=== PATIENT | female | born 1985 | race American Indian/Alaskan Native ===

== ENCOUNTER 2016-09-20 08:20 | Emergency (ER) | payer MEDICAID ==
[2016-09-20 10:30] LABS: Basophils % (Auto) 0.6 % (0.0-1.8); Eosinophils % (Auto) 1.5 % (0.0-4.3); Hematocrit 36.6 % (30.3-42.9); Hemoglobin 11.8 gm/dl (10.1-14.3); Mean Corpuscular HGB Conc 32 % (30-34); Mean Corpuscular Hemoglobin 27 pg (28-32); Mean Corpuscular Volume 83 fl (79-97); Platelet Count 232 K/mm3 (140-440); Red Blood Count 4.43 M/mm3 (3.65-5.03); Red Cell Distribution Width 13.6 % (13.2-15.2)
[2016-09-20 10:45] LABS: Alanine Aminotransferase 21 units/L (7-56); Albumin 3.4 g/dL (3.9-5); Albumin/Globulin Ratio 1.3 %; Alkaline Phosphatase 46 units/L (35-129); Anion Gap 15 mmol/L; BUN/Creatinine Ratio 17.14; Bilirubin,Total 0.2 mg/dL (0.1-1.2); Blood Urea Nitrogen 12 mg/dL (7-17); Calcium 8.3 mg/dL (8.4-10.2); Carbon Dioxide 21 mmol/L (22-30); Chloride 104.4 mmol/L (98-107); Glucose 90 mg/dL (65-100); Sodium 136 mmol/L (137-145); Total Protein 6.1 g/dL (6.3-8.2)
[2016-09-20 11:58] LABS: Bilirubin,Urine NEG (Negative); Blood,Urine LG (Negative); Ketones,Urine NEG (Negative); Leukocyte Esterase,Urine SM (Negative); Mucus,Urine FEW /HPF; Nitrite,Urine NEG (Negative); Protein,Urine <15 mg/dL mg/dL (Negative); Urobilinogen,Urine < 2.0 mg/dL (<2.0)
--- NOTE | 2016-09-20 12:11 | Emergency Department Report ---
HPI - General Chief Complaint: Extremity Problem,Nontraumatic Time Seen by Provider: 09/20/16 11:12 - HPI HPI: She is a 31-year-old female who presents to ED complaining of bilateral foot swelling and pain 2 weeks. Patient states over the past 2 weeks she has some progressive swelling of her foot. 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 Patient states pain is throbbing and constant in nature. Patient states pain is worse with walking. Patient denies any injury or trauma to foot. She denies history of hypertension or diabetes or any other medical conditions. Patient denies fever/chills/nausea/vomiting/abdominal pain/shortness of breath/ difficulty breathing/calf pain ED Past Medical Hx - Past Medical History Previous Medical History?: No - Surgical History Past Surgical History?: Yes Additional Surgical History: C-Sections - Social History Smoking Status: Current Every Day Smoker Substance Use Type: Alcohol - Medications Home Medications: Home Medications Medication Instructions Recorded Confirmed Last Taken Type Compression Socks, Medium [Futuro 1 each MC DAILY #1 pack 09/20/16 Unknown Rx Restoring] Cyclobenzaprine [Flexeril 10 MG 10 mg PO QHS #24 tablet 09/20/16 Unknown Rx TAB] Ibuprofen [Motrin] 800 mg PO Q8HR PRN #30 tablet 09/20/16 Unknown Rx ED Review of Systems ROS: Stated complaint: SWOLLEN/HURT FEET BILATERAL Other details as noted in HPI Constitutional: denies: chills, fever Eyes: denies: eye pain, eye discharge, vision change ENT: denies: ear pain, throat pain Respiratory: denies: cough, shortness of breath, wheezing Cardiovascular: denies: chest pain, palpitations Endocrine: no symptoms reported Gastrointestinal: denies: abdominal pain, nausea, diarrhea Genitourinary: denies: urgency, dysuria, discharge Musculoskeletal: denies: back pain, joint swelling, arthralgia Skin: denies: rash, lesions Neurological: denies: headache, weakness, paresthesias Psychiatric: denies: anxiety, depression Hematological/Lymphatic: denies: easy bleeding, easy bruising Physical Exam - Physical Exam Vital Signs: Vital Signs 09/20/16 08:46 Temperature 98.4 F Pulse Rate 79 Respiratory 18 Rate Blood Pressure 124/80 O2 Sat by Pulse 100 Oximetry Physical Exam: GENERAL: Alert and oriented x3, no apparent distress, mild limp Gait, atraumatic. HEAD: Head is normocephalic and a-traumatic. EYES: Extra ocular muscles are intact. Pupils are equal, round, and reactive to light and accommodation. EARS: symetrical, atraumatic, non tender, ear canal clear and moderate cerumen, tympanic membrance non inflamed. gross auditory nml bilaterally. NOSE: Nose symetrical, Nontender,Nares appeared normal. MOUTH:Mouth is well hydrated and without lesions. Tonsils nonerythematous or swollen, Uvula midline, Tongue not elevated. Mucous membranes are moist. Posterior pharynx clear, no exudate or lesions. Patent airways. NECK: Supple. Non edematous, No carotid bruits. No lymphadenopathy or thyromegaly. LUNGS: Symetrical with respiration, No wheezing, no rales or crackles, CTAB. HEART: S1, S2 present, regular rate and rhythm without murmur, no rubs, no gallops. ABDOMEN: No organomegaly was noted,Positive bowel sounds, soft, and non- distended. . Nontender to palpation on all Quadrants, NO CVA tenderness. EXTREMITIES/MUSCULOSKELETAL: No cyanosis, clubbing, rash, lesions or edema. Full ROM bilaterally. UE/LE Pulses 2+ bilaterally. LE and UE 5+ strength bilaterally. Bilateral foot and ankle 1+ edema. Tenderness to palpation of bilateral foot. Negative straight leg raise bilaterally. Negative Homans sign. No calf tenderness bilaterally NEUROLOGIC: No focal Deficit, Cranial nerves II through XII are grossly intact. No loss of sensation, PSYCHIATRIC: Mood is congruent with affect, denies suicidal or homicidal ideations. SKIN: Warm and dry, No lesions, No ulceration or induration present. ED Course Vital Signs 09/20/16 08:46 Temperature 98.4 F Pulse Rate 79 Respiratory 18 Rate Blood Pressure 124/80 O2 Sat by Pulse 100 Oximetry ED Medical Decision Making - Lab Data Result diagrams: 09/20/16 10:08 09/20/16 10:08 - Radiology Data Radiology results: report reviewed ZACHARY JEONG Female : 1985 MedRec# [id number] 09/20/16 11:17 - [facility]: [id number] : 1985 Patient Age: 31 VASCULAR LAB.PRELIMINARY REPORT.BLE VENOUS DUPLEX DONE. NO EVIDENCE OF DVT/SVT IN VESSELS VISUALIZED.TECHNICALLY LIMITED DUE TO HABITUS. Initialized on 09/20/16 11:17 - END OF NOTE - Medical Decision Making 31-year-old female presents with bilateral foot edema. ED course: CBC within normal limits, CMP within normal limits, d-dimer negative , total CK mildly elevated. Urinalysis shows normal. Discussed the patient's rest fate fish and mayonnaise every hour. Discussed elevate the legs for about 10 minutes daily Discussed the follow up with primary care physician. Discussed compression socks daily for about 20-30 minutes. Discussed findings with patient. Critical care attestation.: If time is entered above; I have spent that time in minutes in the direct care of this critically ill patient, excluding procedure time. ED Disposition Clinical Impression: Edema of both feet Disposition: DISCHARGED TO HOME OR SELFCARE Is pt being admited?: No Does the pt Need Aspirin: No Condition: Stable Instructions: Leg Edema (ED) Additional Instructions: Follow-up with primary care physician. Elevate your feet throughout the day. Wear stockings as discussed. If new symptoms arise which aren't to ED. Prescriptions: Cyclobenzaprine [Flexeril 10 MG TAB] 10 mg PO QHS #24 tablet Compression Socks, Medium [Futuro Restoring] 1 each MC DAILY #1 pack Ibuprofen [Motrin] 800 mg PO Q8HR PRN #30 tablet PRN Reason: Pain Referrals: PRIMARY SAIRA, [Primary Care Provider] - 3-5 Days WEN BERRY MD [Referring] - 3-5 Days MELISSA CHAPMAN MD [Referring] - 3-5 Days SHAE ONEIL MD [Referring] - 3-5 Days Forms: Work/School Release Form(ED) Time of Disposition: 13:07
[2016-09-20] MEDS ORDERED: TORADOL IM ONE (12:16)
[2016-09-20] MEDS ORDERED: FLEXERIL PO ONE (12:18)
[2016-09-20 13:37] VITALS: BP 97/62
== END 2016-09-20 13:38 | disposition home or self-care (01) ==
LOC: ED 08:20
DX: R60.0 Localized edema (principal); F17.200 Nicotine dependence, unspecified, uncomplicated
CPT/HCPCS: 36415; 80053; 81001; 82550; 84550; 84703; 85025; 85379; 93970; 96372; 99284; J1885

== ENCOUNTER 2017-10-29 09:19 | Emergency (ER) | payer BC, MEDICAID ==
--- NOTE | 2017-10-29 09:43 | Emergency Department Report ---
Blank Doc - Documentation Documentation: Patient is a 32-year-old black female who is presenting with rectal bleeding. Patient states she's been having some discomfort at the rectal pressure sensation for the last several days and when she went to urinate this morning saw blood in the toilet. Patient says there is no dysuria. Patient believes she may have had hemorrhoids in the past when she had children but in general has not been diagnosed formally with hemorrhoids. Patient denies any fevers chills nausea vomiting or abdominal pain at this time. Patient will be moved to the treatment area for further examination.
--- NOTE | 2017-10-29 10:09 | Emergency Department Report ---
HPI - General Chief Complaint: GI Bleed Time Seen by Provider: 10/29/17 09:32 - HPI HPI: This is a 32-year-old female presenting with rectal bleeding that started this morning. Patient reports one episode this morning at home she went to work and had to leave early because after having a bowel movement there was a moderate amount of blood in the toilet. He reports a history of hemorrhoids after having children. Denies constipation at this time. She is concerned this could possibly be something else because her PCP notified of elevated WBC's. She will f/u with PCP at the end of this month to repeat CBC. Denies discharge but noticed clear discharge from anal area after wiping. Admits to possible STD exposure. Denies fever, frequency, urgency, dysuria, and vaginal discharge. ED Past Medical Hx - Past Medical History Previous Medical History?: Yes Additional medical history: Childbirth by - Surgical History Past Surgical History?: Yes Additional Surgical History: x 2 - Social History Smoking Status: Current Every Day Smoker Substance Use Type: Alcohol, Prescribed - Medications Home Medications: Home Medications Medication Instructions Recorded Confirmed Last Taken Type Compression Socks, Medium [Futuro 1 each MC DAILY #1 pack 09/20/16 Unknown Rx Restoring] Cyclobenzaprine [Flexeril 10 MG 10 mg PO QHS #24 tablet 09/20/16 Unknown Rx TAB] Ibuprofen [Motrin] 800 mg PO Q8HR PRN #30 tablet 09/20/16 Unknown Rx Hydrocortisone 2.5% [Proctosol-Hc] 28.35 gm [place] BID #5 tube 10/29/17 Unknown Rx ED Review of Systems ROS: Stated complaint: ANAL BLEEDING Other details as noted in HPI Constitutional: denies: chills, fever Respiratory: denies: cough, shortness of breath, wheezing Cardiovascular: denies: chest pain, palpitations Gastrointestinal: hematochezia, other (acute hemorroids). denies: abdominal pain, nausea, vomiting, diarrhea, constipation, hematemesis, melena Genitourinary: denies: urgency, dysuria, frequency, discharge Neurological: denies: headache, weakness, numbness, paresthesias Psychiatric: denies: anxiety, depression Physical Exam - Physical Exam Vital Signs: Vital Signs 10/29/17 09:24 Temperature 98.1 F Pulse Rate 95 H Respiratory 20 Rate Blood Pressure 133/81 O2 Sat by Pulse 100 Oximetry Physical Exam: GENERAL: The patient is looking unwell, but in no acute distress. HEENT: Atraumatic and normocephalic. Pupils are equal, round, reactive to light , and accommodation. Extraocular movements are intact. There is no icterus, cyanosis, or pallor of the conjunctivae. Tympanic membranes are dull, but not inflamed bilaterally. Turbinates pink and moist. Sinuses non-tender to percussion. Posterior pharynx is minimally erythematous. No exudates are noted. CHEST: Air entry is adequate bilaterally with occasional scattered rhonchi. No crackles are appreciated. HEART: Sounds 1 and 2 are heard and are normal. Regular rate and rhythm, but no murmurs, gallops, or rubs. ABDOMEN: Soft and nontender. Bowel sounds are present and normal. There is no hepatosplenomegaly. RECTAL: External hemorroids, bloody drainage. SKIN: Without rash. EXTREMITIES: Without edema, cyanosis, or clubbing. ED Course Vital Signs 10/29/17 09:24 Temperature 98.1 F Pulse Rate 95 H Respiratory 20 Rate Blood Pressure 133/81 O2 Sat by Pulse 100 Oximetry ED Medical Decision Making - Medical Decision Making This is a 32 y.o. female that presents with active hemorrhoids that started this morning. History of hemorrhoids. Possible exposure to STD, concerned of possible STD. Patient is stable and was examined by me. Obtained UA, normal. Physical exam active bleeding external hemorrhoids. Start hydrocortisone suppository. Discussed plan with patient and agreed to plan. No further questions noted by the patient. Discharged home in stable condition. Follow up with PCP in 1 week. Referral to Gastroenterology. Critical care attestation.: If time is entered above; I have spent that time in minutes in the direct care of this critically ill patient, excluding procedure time. ED Disposition Clinical Impression: External hemorrhoids Disposition: DC-01 TO HOME OR SELFCARE Is pt being admited?: No Does the pt Need Aspirin: No Condition: Stable Instructions: Hemorrhoids (ED) Additional Instructions: Moist, gentle cleaning following a bowel movement is advised to minimize anal irritation. Avoid excessive straining at stool and to avoid sitting on the toilet for long periods of time. Constipation can be a causative factor in hemorrhoid formation, which can be avoided by adding fiber and fluids to the diet; consuming 25 g to 30 g of fiber daily is recommended, either with high-fiber foods or with commercial fiber supplements. Follow up with primary care provider or gastroenterology in 2-3 days. Prescriptions: Hydrocortisone 2.5% [Proctosol-Hc] 28.35 gm [place] BID #5 tube Referrals: [facility] [Outside] - 3-5 Days [facility] [Provider Group] - 3-5 Days Forms: Work/School Release Form(ED) Time of Disposition: 12:29 Print Language: CITIZEN OF [place]
[2017-10-29 12:11] LABS: Bilirubin,Urine NEG (Negative); Blood,Urine NEG (Negative); Color,Urine Yellow (Yellow); Mucus,Urine FEW /HPF; Protein,Urine <15 mg/dL mg/dL (Negative); Urobilinogen,Urine < 2.0 mg/dL (<2.0); WBC,Urine < 1.0 /HPF (0.0-6.0)
[2017-10-29 12:55] VITALS: BP 128/78
== END 2017-10-29 12:55 | disposition home or self-care (01) ==
LOC: ED 09:19
DX: K64.4 Residual hemorrhoidal skin tags (principal); F17.200 Nicotine dependence, unspecified, uncomplicated
CPT/HCPCS: 81001

== ENCOUNTER 2018-01-26 07:27 | Outpatient (CLI) | payer BC ==
--- NOTE | 2018-01-26 08:24 | Ultrasound Report ---
TARGETED BREAST ULTRASOUND: 01/26/18 07:27:00 CLINICAL: 32 year-old with a palpable nontender nonpainful right breast lump. COMPARISON: None. FINDINGS: Ultrasound of the right breast demonstrated a benign round anechoic cyst at 7 o'clock 12 cm from the nipple. It measures 1.5 x 1.3 x 1.5 cm and correlates with the palpable lump. A second benign cyst adjacent to it measures 7 x 5 x 6 mm. A benign cyst at 8 o'clock 12 cm from the nipple measures 5 x 7 x 5 mm. A 3 x 2 x 3 mm cyst at 8 o'clock 12 cm from the nipple. No solid mass or shadowing. IMPRESSION: Benign cysts BI-RADS 2 - - Benign RECOMMENDATION: Clinical followup and routine mammographic screening based on ACS guidelines.
== END 2018-01-26 07:28 | disposition home or self-care (01) ==
LOC: US 07:27
PROVIDERS: ATTEND Family Medicine
DX: N63.10 Unspecified lump in the right breast, unspecified quadrant (principal)